=== PATIENT | male | born 1965 | race Caucasian/White ===

== ENCOUNTER 2022-08-30 01:42 | Day surgery (SDC) | payer BC, SELFPAY ==
[2022-08-20 12:13] VITALS: BMI 29.9
--- NOTE | 2022-08-30 08:01 | WPDANESEPPF ---
Anes - Initial Pre Proc Eval Procedure: Operation Date: 08/30/22 09:30 Proposed Procedures p Esophagogastroduodenoscopy & Screening Colonoscopy - Nabil Unger MD Date/Time: 08/30/22 08:01 Surgeon: Nabil Unger MD Pre Op Diagnosis: neoplasm screening, dysphagia Patient Data Age: 57 Gender: M Height: 1.68 m Weight: 84 kg Allergies Allergy/AdvReac Type Severity Reaction Status Date / Time Penicillins Allergy Unknown Unknown Verified 08/30/22 08:43 Home Medications Medication Instructions Recorded Confirmed Type losartan 100 mg tablet 100 mg PO DAILY 08/20/22 08/30/22 History metformin 500 mg tablet,extended 1,000 mg PO DAILY 08/20/22 08/30/22 History release 24 hr omeprazole 40 mg capsule,delayed 40 mg PO DAILY 08/20/22 08/30/22 History release Patient hx anesthesia problems: none Family hx anesthesia problems: none Results Review: All pre-operative results and documents have been reviewed as part of the pre-operative evaluation. [facility] Past Medical History Medical History (Updated 08/30/22 @ 08:02 by Eron Carson DO) Hypertension Pre-diabetes Social History Social History Smoking status: Never smoker Alcohol intake: current Substance use: never Substance use type: does not use Living arrangements: with family Spiritual care concerns: No Anes - Eval Final PreProcedure Day of Procedure 08/30/22 08:01 Patient weight: obese Heart: regular rate and rhythm Lungs: clear to auscultation Airway: Mallampati scale class II Neurological: alert and oriented Last oral intake: >/= 8 hours ASA classification: III Emergent: no Anesthetic plan: proceed Anesthesia type and monitoring: general GIVS and standard monitoring Results Review: All pre-operative results and documents have been reviewed as part of the pre-operative evaluation. Informed Consent: The patient's anesthetic plan and its attendant risks and benefits were discussed with the patient/family/POA. Questions were solicited and answers provided to the satisfaction of the patient/family/POA.
[2022-08-30 08:44] VITALS: BP 161/99; PULSE 87; RESP 16; TEMP 36.4; O2SAT 99
[2022-08-30] MEDS: LACTATED RINGERS 1,000 ML 150 ML IV CONT (08:55)
[2022-08-30 08:56] LABS: Glucose Point of Care 177 mg/dl (65-105)
--- NOTE | 2022-08-30 09:16 | PM.HPGS ---
History of Present Illness History of Present Illness Consent: Risks, benefits, and alternatives have been discussed and questions answered. Patient agrees to proceed with procedure. Chief complaint: neoplasm screening, dysphagia Narrative: Mirza Hart is a 57 year old male Referred for colon cancer screening. Also he has been having a great deal difficulty with acid reflux. His symptoms have improved since he started taking omeprazole last month. He also however has been having frequent episodes of dysphagia with food like bread and rice getting caught in his chest. This has been going on for many months. Review of Systems Review of Systems: All systems reviewed & are unremarkable except as noted in HPI and below PMFSH Past Medical History Medical History Hypertension Pre-diabetes Social History Social History Smoking status: Never smoker Alcohol intake: current Substance use: never Substance use type: does not use Living arrangements: with family Spiritual care concerns: No Meds Home Medications and Allergies Home Medications Medication Instructions Recorded Confirmed Type losartan 100 mg tablet 100 mg PO DAILY 08/20/22 08/30/22 History metformin 500 mg tablet,extended 1,000 mg PO DAILY 08/20/22 08/30/22 History release 24 hr omeprazole 40 mg capsule,delayed 40 mg PO DAILY 08/20/22 08/30/22 History release Allergies Allergy/AdvReac Type Severity Reaction Status Date / Time Penicillins Allergy Unknown Unknown Verified 08/30/22 08:43 Vital Signs Vital Signs - 24 hr 08/30/22 08:44 Temperature 36.4 C Pulse Rate 87 Respiratory Rate 16 Blood Pressure 161/99 H Pulse Oximetry 99 Oxygen Delivery Room Air Exam Const: General: alert Orientation/consciousness: patient oriented x3 Resp: Auscultation: clear to auscultation bilaterally Cardio: Rhythm: regular rhythm GI: GI Palp: Yes Soft to palpation and No Tenderness to palpation present (GI) Neuro: General: patient oriented x3 Assessment and Plan Assessment and plan (1) Dysphagia: Code(s): R13.10 - Dysphagia, unspecified Status: Acute Assessment and Plan: EGD with possible biopsy or dilatation or cautery. (2) Colon cancer screening: Code(s): Z12.11 - Encounter for screening for malignant neoplasm of colon Status: Acute Assessment and Plan: Colonoscopy with possible biopsy or polypectomy or cautery or injection of substances.
[2022-08-30] MEDS: BENZOCAINE (*SP) 60 ML SPRAY CAN (HURRICAINE) 1 SPRAY MUCOUS MEM (09:30)
--- NOTE | 2022-08-30 09:56 | SUR.OPER ---
EGD START 931, END 938 COLONOSCOPY START 944, END 955
[2022-08-30 10:01] VITALS: BP 106/67; PULSE 86; RESP 18; O2SAT 97
[2022-08-30 10:11] VITALS: BP 119/76; PULSE 74; RESP 22; O2SAT 97
[2022-08-30 10:21] VITALS: BP 122/94; PULSE 73; RESP 20; O2SAT 97
== END 2022-08-30 10:29 | disposition home or self-care (01) ==
PROVIDERS: PCP Family Medicine; Visit Provider Internal Medicine Gastroenterology
PROC: 0DJ08ZZ Inspection of Upper Intestinal Tract, Via Natural or Artificial Opening Endoscopic (ICD-10-PCS; CPT 43235; principal; 2022-08-30 09:30)
DX: Z12.11 Encounter for screening for malignant neoplasm of colon (principal); K57.30 Diverticulosis of large intestine without perforation or abscess without bleeding; K22.2 Esophageal obstruction; K21.9 Gastro-esophageal reflux disease without esophagitis; I10 Essential (primary) hypertension; R73.03 Prediabetes; Z79.84 Long term (current) use of oral hypoglycemic drugs; E66.9 Obesity, unspecified; Z68.29 Body mass index [BMI] 29.0-29.9, adult
CPT/HCPCS: 45378; 43249; 82948; 88305; C1726; J2704; J7120